=== PATIENT | female | born 1975 | race Caucasian/White ===

== ENCOUNTER → 2017-05-18 | Day surgery (SDC) | payer OTHER ==
[~2017-05-18] MED LIST: ACIPHEX 20 MG T20 MG PO; AMITRIPTYLINE H25 M2 PO; HYDROCODONE-AP1 EAC6 PO; SYNTHROID100 MCG PO; SYNTHROID25 MCG PO
[2017-05-18 09:40] LABS: HEMATOCRIT 40.4 % (37.0-47.0); HEMOGLOBIN 13.7 gm/dL (12.0-15.0)
[2017-05-18 09:50] LABS: CALCIUM 9.8 mg/dL (8.5-10.1); CREATININE 0.8 mg/dL (0.6-1.3); POTASSIUM 4.3 mmol/L (3.5-5.1)
[2017-05-18 09:54] LABS: ALBUMIN 3.9 g/dL (3.4-5.0); TOTAL BILIRUBIN 0.4 mg/dL (<0.1-1.0)
--- NOTE | 2017-05-22 12:35 | S ---
[address] [address] SURGICAL PATH RPT PROCEDURE Name: DONIS KC Room: [facility].#: [id number] Admission: 05/18/17 Date of : 77 Discharge: Report #: [id number] Path Case #: [id number] PATHOLOGY REPORT COLLECTION DATE: 05/18/2017 RECEIVED DATE: 05/18/2017 SUBMITTING PHYS: Dr. Wilver Worley OTHER PHYS: Dr. Nicolasa Hebert SPECIMEN(S) RECEIVED: A.Gallbladder and contents * * * * * * * * * * * * FINAL DIAGNOSIS: Gallbladder and contents: - Chronic cholecystitis, cholelithiasis and benign sentinel lymph node. (EVONNE:pit; 05/22/2017) PATHOLOGIST: Jose Garcia M.D. REPORT ELECTRONICALLY SIGNED BY: Jose Garcia M.D. DATE/TIME: 05/22/2017 12:34 * * * * * * * * * * * * GROSS PATHOLOGY: Received in formalin labeled "Donis Kc and gallbladder and contents," is a 6.5 x 2.0 x 2.0 cm, gallbladder with quesada-purple serosal surfaces. A quesada rubbery lymph node 0.7 x 0.5 x 0.4 cm is present within the cystic duct region. Opening the gallbladder reveals velvety green mucosa and an average wall thickness of up to 0.2 cm. Calculi are present. Urology Physician Assistant sections in A1. (SWS; 05/18/2017) CLINICAL HISTORY: Biliary dyskinesia INITIAL CPT CODE(S): A; 78500 Professional services performed by [facility] at [facility], [address] [place] [address] Rd., [place] [address]. Technical services performed by [facility] at [address] [place] [address], [address] [address]. [facility] [address] [address] SURGICAL PATH RPT PROCEDURE Name: DONIS KC Room: [facility].#: [id number] Admission: 05/18/17 Date of : 77 Discharge: Report #: [id number] Path Case #: [id number] [address] PHONE: [phone] DIRECTOR: Eloy Menendez M.D. * * * END OF REPORT * * *
--- NOTE | 2017-06-13 11:46 | OP ---
[facility] [address] [place] [address] OPERATIVE REPORT Name: HEMPHILLDONIS Marty Room: [facility]#: [id number] Admission: 05/18/17 Attend Phys: Wilver Worley Discharge: Date of : 77 Report #: [id number] THIS REPORT FOR: //name// CC: Wilver Hebert DATE OF SERVICE: 05/18/2017 PREOPERATIVE DIAGNOSIS: Biliary dyskinesia. POSTOPERATIVE DIAGNOSIS: Biliary dyskinesia. OPERATION: Laparoscopic cholecystectomy. SURGEON: Wilver Worley MD. ANESTHESIA: General. ESTIMATED BLOOD LOSS: Minimal. SPECIMENS: Gallbladder. DESCRIPTION OF PROCEDURE: After informed consent was obtained, the patient was brought to the operating room and placed supine. SCDs were placed and working, preoperative antibiotics were administered, general anesthesia was induced. The abdomen was prepped and draped in the usual sterile fashion. A 10 mm incision was made below the umbilicus. The fascia was incised. Trocar was placed. Pneumoperitoneum was established. Three right upper quadrant 5 mm ports were placed. Gallbladder was then grasped at the fundus and retracted cephalad. Infundibulum was grasped and retracted laterally. I dissected out the cystic duct and cystic artery. Cystic duct and artery were clipped and ligated leaving 2 clips on the remaining duct and 1 on the remaining artery. Gallbladder was then taken off the liver bed with electrocautery. It was placed into an Endopouch and removed. The fascia was then closed with a [id number] 0 Vicryl. Skin was closed with 4-0 Monocryl. Incisions were sealed with Dermabond. COMPLICATIONS: None. DISPOSITION: The patient was taken to recovery in satisfactory condition. <ELECTRONICALLY SIGNED> By: Wilver Worley MD 06/13/17 [id number] [id number] Worley MD /nt
== END | disposition home or self-care (01) ==
LOC: M.SUR 08:51
PROVIDERS: Surgery
DX: K82.8 Other specified diseases of gallbladder (principal); Z88.0 Allergy status to penicillin; Z88.8 Allergy status to other drugs, medicaments and biological substances; Z79.899 Other long term (current) drug therapy; Z79.891 Long term (current) use of opiate analgesic